=== PATIENT | male | born 1960 ===

== ENCOUNTER 2017-02-02 10:46 | Emergency (ER) | payer OTHER ==
--- NOTE | 2017-02-02 11:52 | UC ---
Knee Pain HPI - HPI Summary HPI Summary: 57 y/o Telugu speaking male presents to the urgent care c/o Left knee pain after jumping from a small wall about 2 feet height and landing in a twisting position at 0730am. Pt states he was at work. Pt states pain is sharp, 8/10 with movement and 0/10 at rest , localized in the back of his knee. He is able to ambulate with limping, but able to stand up. Pt has not taking anything to alleviate symptoms. He was brought in by his Employer. Pt denies numbness and tingling over the toes or left foot. Pt denies fever, SOB, chest pain, N/V/D, calf pain. - History of Current Complaint Chief Complaint: UCLowerExtremity Stated Complaint: LEFT KNEE INJURY (WC) Time Seen by Provider: 02/02/17 11:51 Hx Obtained From: Patient Onset/Duration: Sudden Onset, Lasting Hours - 5 hrs, Still Present Severity Initially: Severe Severity Currently: Moderate Location Of Injury: Left knee Pain Intensity: 8 Pain Scale Used: 0-10 Numeric Character: Sharp Aggravating Factor(s): Movement Alleviating Factor(s): Rest, Cold Associated Signs And Symptoms: Positive: Swelling. Negative: Numbness, Tingling Able to Bear Weight: Yes - Risk Factors Septic Arthritis Risk Factor: Negative Gout Risk Factor: Negative - Allergies/Home Medications Allergies/Adverse Reactions: Allergies Allergy/AdvReac Type Severity Reaction Status Date / Time No Known Allergies Allergy Verified 02/02/17 11:37 Home Medications: Home Medications Acid Reflux Med Otc 1 tab PO DAILY 02/02/17 [History] PMH/Surg Hx/FS Hx/Imm Hx Previously Healthy: Yes Other GI/ History: gastritis - Surgical History Surgical History: Yes Surgery Procedure, Year, and Place: carpal tunnel - Family History Known Family History: Positive: None - Pt denies FMHX - Social History Occupation: Employed Full-time Lives: With Family Alcohol Use: None Substance Use Type: None Smoking Status (MU): Never Smoked Tobacco Review of Systems Constitutional: Negative Skin: Negative Eyes: Negative ENT: Negative Respiratory: Negative Cardiovascular: Negative Gastrointestinal: Negative Genitourinary: Negative Motor: Negative Neurovascular: Negative Musculoskeletal: Other: - LF knee pain Neurological: Negative Psychological: Negative Is Patient Immunocompromised?: No All Other Systems Reviewed And Are Negative: Yes Physical Exam Triage Information Reviewed: Yes Vital Signs: Initial Vital Signs Temp 98.5 F 02/02/17 11:24 Pulse 81 02/02/17 11:24 Resp 18 02/02/17 11:24 BP 122/81 02/02/17 11:24 - Additional Comments Vital Signs Reviewed: Yes General: Well developed, well nourished male sitting on examining table w/o any apparent distress Eyes: Positive: Conjunctiva Clear - PERRLA, EOMI, fundi grossly normal ENT: Positive: Normal ENT inspection, Hearing grossly normal, Pharynx normal, TMs normal Neck: Positive: Supple, Nontender, No Lymphadenopathy Respiratory: Positive: Chest nontender, Lungs clear, Normal breath sounds, No respiratory distress Cardiovascular: Positive: RRR, No Murmur, Pulses Normal, Brisk Capillary Refill Abdomen Description: Positive: Nontender, No Organomegaly, Soft. Negative: CVA Tenderness (R), CVA Tenderness (L) Bowel Sounds: Positive: Present Musculoskeletal: all extremities w/ Strength Intact, No Edema, Other: LF Knee: Pt is able to bear weight and ambulate with limping. No surface trauma, soft tissue swelling on the medial aspect. No overlying erythema or warmth. The L knee is without obvious asymmetry or deformity when compared with the R knee. Decreased ROM of LF knee due to pain. No tenderness to palpation of the patella , no effusion or ballottement. No tenderness over the infrapatellar tendon. Point tenderness over the medial joint line, No tenderness over the medial or lateral tibial plateaus. No tenderness over the proximal fibular head, tenderness to palpation over the popliteal fossa, no mass palpated. No quadriceps tenderness. no collateral ligament laxity to valgus or varus stress. Decrease ROM due to pain and unable to perform Aster, Alcira test. Distal motor and neurovascular status intact. Neurological Exam: Normal Psychological Exam: Normal Skin Exam: Normal Knee Pain Course/Dx - Course Course Of Treatment: 57 y/o Telugu speaking male presents to the urgent care c /o Left knee pain after jumping from a small wall about 2 feet height and landing in a twisting position at 0730am. Pt states he was at work. Pt states pain is sharp, 8/10 with movement and 0/10 at rest, pain is localized in the back of his knee. He is able to ambulate with limping, but able to stand up. Pt has not taking anything to alleviate symptoms. He was brought in by his Employer. Pt denies numbness and tingling over the toes or left foot. Pt denies fever, SOB, calf pain, chest pain, N/V/D. Hx obtained, I transalate for PT . LF knee X-ray ordered: Impression: joint effusion observed in the anterior patella , no fractures observed. Pt's knee immobilized with knee immobilizer, given crutches and advised RICE, Rx Naproxen and advised to continue taking Omeprazole PO he has at home. If not improvemetn of symptoms in 3 days to f/u with Dr Hameed Orthopedic for further evaluation and treatment. Pt and Employer understood and agreed with D/C instructions. Pt left the clinic hemodynamically stable A&OX3 - Differential Dx/Diagnosis Differential Diagnosis/HQI/PQRI: Contusion, Dislocation, Fracture (Closed), Sprain, Strain, Tendonitis Provider Diagnoses: 1- Left knee pain s/p injury - Physician Notifications Discussed Patient Care With: Thomas Lechuga - Dr Vyas agreed with plan of care Discharge - Discharge Plan Condition: Stable Disposition: HOME Prescriptions: Naproxen TAB* [Naprosyn 250 mg TAB*] 500 mg PO Q8H PRN #30 tab PRN Reason: Pain Patient Education Materials: Knee Pain (ED), Knee Sprain (ED) Referrals: [facility] [Outside] - 1 Week Nathanael Hameed MD [Medical Doctor] - 1 Week Additional Instructions: 1-Please take medications as directed to alleviate pain and swelling. Keep taking your Omeprazole PO to protect your stomach 2-Please apply ice, keep your knee immobilized with the knee immobilizer and the crutches. Keep you leg elevated at night time 3- Please f/u with Orthopedic Dr Hameed or your PCP in 1 week is not improvement of symptoms for further evaluation and treatment.
[2017-02-02] MEDS ORDERED: Ketorolac INJ* 60 MG/2 ML VIAL IM ONE (12:24)
[2017-02-02] MEDS ORDERED: Omeprazole CAP* 20 MG PO ONE (12:24)
--- NOTE | 2017-02-02 12:59 | RAD ---
INDICATION: Left knee injury. TECHNIQUE: 4 views of the left knee were obtained. FINDINGS: There is soft tissue swelling anterior to the patella. The bones are normal alignment. There is a joint effusion present. No fracture is seen. Joint spaces appear maintained. IMPRESSION: JOINT EFFUSION, NO FRACTURE IS SEEN. IF THE PATIENT'S SYMPTOMS PERSIST RECOMMEND FOLLOW-UP IMAGING.
[2017-02-02 14:08] VITALS: BP 120/75
== END 2017-02-02 14:05 | disposition home or self-care (01) ==
LOC: UCCORT 10:46
DX: M25.562 Pain in left knee (principal)
CPT/HCPCS: 96372; 99203; A9270-GY; G0463; J1885